=== PATIENT | female | born 1970 | race Caucasian/White ===

== ENCOUNTER 2016-10-01 13:57 | Emergency (ER) | payer MEDICAID, OTHER ==
[2016-10-01] MEDS ORDERED: BUPIVACAINE 0.5% 30 ML VIAL INF ONE (14:26)
[2016-10-01 14:27] VITALS: BP 115/81; PULSE 64; TEMP 98.2; BMI 26.6
--- NOTE | 2016-10-01 14:45 | EDPRACDOC ---
- General Information Chief Complaint: Wound Stated Complaint: FEMALE PROBLEMS ? ABSCESS Time Seen by Provider: 10/01/16 14:27 Information Source: Patient, Family Mode of Arrival:: Car Home Medications: Home Medications Hydrocodone Bit/Acetaminophen [Hydrocodon-Acetaminophen 5-325] 1 tab PO Q6H PRN #15 tab 10/01/16 Sulfamethoxazole/Trimethoprim [Bactrim Ds Tablet] 1 tab PO BID #20 tab 10/01/16 Allergies/Adverse Reactions: Allergies Allergy/AdvReac Type Severity Reaction Status Date / Time No Known Allergies Allergy Verified 10/01/16 14:33 - History of Present Illness Onset: 1 week HPI: PT PRESENTS TO ED WITH ABSCESS TO LEFT BUTTOCK FOR APPROX 1 WEEK. STATES SHE HAS OTHER VERY SMALL AREAS TO GENITALS WELL. Location: Reports: Buttock (LEFT), Pelvis (2 OTHER SMALL AREAS TO GENITALS) Last Tetanus: No Relevent History Of: Reports: None Prior Abscess: Reports: None Pain: Reports: Moderate Quality: Reports: Painful, Red Associated Signs & Symptoms: Reports: None ED Past Medical History - History Reviewed Yes Nurses notes reviewed and agree except as marked Travel Outside of [place] in the Last 3 Months?: No No Past Medical History: Yes Patient has no past medical history - Patient Medical History Psychological History: Denies: Depression - Social Medical History Smoking Status: Heavy tobacco smoker (5 or more cigarettes/day or daily pipe/ cigar) ETOH: None Substance Abuse: None Lives With: Other Lives In: Home EDM Review of Systems - Review of Systems ROS Negative Except as Marked: Yes All systems reviewed and were negative except as marked Constitutional: No Symptoms Reported. negative: Fever, Chills, Weakness, Fatigue, Loss of Appetite Eyes: No Symptoms Reported. negative: Redness, Blurred Vision, Double Vision, Discharge, Pain, Light Sensitive, Photophobia Ears: No Symptoms Reported. negative: Pain, Hearing Loss, Drainage, Ear Pulling Throat: No Symptoms Reported. negative: Pain, Swelling Nose: No Symptoms Reported. negative: Congestion, Bleeding, Discharge, Injection, Swelling, Deformity, Ecchymosis, Tender, Abrasion, Laceration Mouth: No Symptoms Reported. negative: Pain, Drooling Respiratory: No Symptoms Reported. negative: Cough, Brassy Cough, Barky Cough, Shortness of Breath, Wheezing, Hemoptysis Cardiovascular: No Symptoms Reported. negative: Chest Pain, Palpitations, Syncope, Edema, Orthopnea, PND, Skin Mottling, Cyanosis Gastrointestinal: No Symptoms Reported. negative: Pain, Constipation, Nausea, Vomiting, Diarrhea, Melena, Formula Intolerance Genitourinary: Other (SMALL RED BUMPS THAT ARE PAINFUL.). negative: Bleeding, Dysuria, Discharge, Frequency, Hematuria, , Testicular Pain Neurological: No Symptoms Reported. negative: Headache, Dizziness, Seizure, Numbness, Weakness, Speech Difficulty, Gait Difficulty Musculoskeletal: No Symptoms Reported. negative: Neck, Chestwall, Ribs, Back, Shoulder, Arm, Elbow, Forearm, Wrist, Hand, Pelvis, Hip, Femur, Knee, Leg, Ankle , Foot Integumentary: Other (ABSCESS TO LEFT BUTTOCK). negative: Bruising, Itching, Rash, Wound Allergic/Immunologic: No Symptoms Reported. negative: Hives, Itching Hematologic: No Symptoms Reported. negative: Lymphadenopathy, Easy Bruising, Easy Bleeding Endocrine: No Symptoms Reported. negative: Weight Gain, Weight Loss Psychiatric: No Symptoms Reported. negative: Anxiety, Depression, Hallucinations, Insomnia, Suicidal - Physical Exam Constitutional: Alert (Awake), No apparent distress Oriented to: Time, Person, Place Last recorded Vital Signs: Last Vital Signs Temp 98.2 F 10/01/16 14:26 Pulse 64 10/01/16 14:26 Resp 18 10/01/16 14:26 BP 115/81 10/01/16 14:26 Pulse Ox 98 10/01/16 14:26 Oxygen Pulse Oxygen Saturation 98 O2 Device Oxygen Flow Rate Fraction of Inspired Oxygen ( FIO2) - HEENT Head: Normal ( normocephalic) Eye Exam: Normal (PERRL, EOMI, Sclera white) Oropharynx: Normal (Pharynx:Moist without exudate,Gums-no swelling) Tympanic Membrane: Normal ENT EAC: Normal TMJ: Normal Nose: No Symptoms Reported (septum midline) Neck: Normal (FROM, trachea at midline) - Respiratory/Cardiovascular Respiratory: Normal - CTA (BBS clear to auscultation without adventitious sounds ) Cardiovascular: Normal (RRR without murmur, gallop or rub) - GI Auscultation: Normal (NABS) Palpation: Normal (Soft,No rebound or guarding, non distended) Tenderness: Non tender Irizarry's Sign: Negative - Bladder: Normal External: Other (2 AREAS OF WHAT APPEARS TO BE INFECTED HAIR FOLLICLES. NO DISCERNIBLE ABSCESS IN THIS AREA TO I&D) - Musculoskeletal Back: Normal (Non-Tender) Extremities: Normal (Normal tone, Pulses 2+ No cyanosis or edema, FROM) - Integumentary Skin: Normal, Warm, Dry, Other (ABSCESS TO LEFT BUTTOCK.) Lymphatics: Normal (no adenopathy) - Neurologic Memory Impaired: Normal Motor Function: Normal (Normal tone, Pulses 2+ No cyanosis or edema, FROM) Cranial Nerve: Normal (CN II-X11 intact sensation, strength 5/5) Cerebellar: Normal Mood Description: Normal Perception: Normal ED Abscess/Mass Exam - Integumentary Skin: Normal Mass: Red, Tender, Firm, Local Cellulitis Lymphatics: Normal ED Procedures - Incision and Drainage Informed of risks, benefits and alternatives described.: Yes Informed Consent Signed: Verbal Indication: Painful Mass Anesthetic: Bupivacaine Prep: Betadine Blade Size: 11 Incised Site drained: Reports: Blood, Pus Incised site was: Not irrigated, Not Packed with Iodoform - Differential Diagnosis Abscess, Other (FURUNCLE TO GENITAL REGION) Decision Time to Discharge: 14:48 - Departure Disposition: Home Condition: Stable Final Diagnosis: Abscess, Furunculosis Instructions: Abscess (ED), Furunculosis and Carbunculosis (ED) Education/Counseling Given To: Patient Education/Counseling Given Regarding: Diagnosis, Treatment, Prognosis, Follow Up Referrals: None,No Provider [Primary Care Provider] - One Week Prescriptions: Hydrocodone Bit/Acetaminophen [Hydrocodon-Acetaminophen 5-325] 1 tab PO Q6H PRN #15 tab PRN Reason: Pain Sulfamethoxazole/Trimethoprim [Bactrim Ds Tablet] 1 tab PO BID #20 tab Additional Instructions: RETURN IN 2 DAYS FOR WOUND CHECK OR SOONER FOR WORSE OR DIFFERENT SYMPTOMS.
== END 2016-10-01 15:05 | disposition home or self-care (01) ==
LOC: EDMC 13:57
DX: L02.31 Cutaneous abscess of buttock (principal); L02.92 Furuncle, unspecified
CPT/HCPCS: 10060; 87070; 87075; 87077; 87186; 99282; J3490

== ENCOUNTER 2016-10-03 13:04 | Emergency (ER) | payer OTHER ==
[2016-10-03 13:14] VITALS: BP 115/90; PULSE 76; TEMP 98.1; BMI 26.9
--- NOTE | 2016-10-03 13:31 | EDPRACDOC ---
- General Information Chief Complaint: Wound Stated Complaint: WOUND RECHECK Time Seen by Provider: 10/03/16 13:27 Information Source: Patient Mode Of Arrival: Car Home Medications: Home Medications Sulfamethoxazole/Trimethoprim [Bactrim Ds Tablet] 1 tab PO BID #20 tab 10/01/16 Hydrocodone Bit/Acetaminophen [Hydrocodon-Acetaminophen 5-325] 1 tab PO Q6H PRN #15 tab 10/03/16 Allergies/Adverse Reactions: Allergies Allergy/AdvReac Type Severity Reaction Status Date / Time No Known Allergies Allergy Verified 10/01/16 14:33 - History of Present Illness Onset: 2 days Wound Location: LEFT POSTERIOR THIGH Wound Type: Other (S/P I&D) Wound Discharge: None Previously Treated In: [place] [facility] Current Wound Treatment: Antibiotics, Other (I&D) Associated Signs and Symptoms: Pain. negative: Swelling, Fever, Local Redness, Red Streaking, Numbness, Weakness ED Past Medical History - History Reviewed Yes Nurses notes reviewed and agree except as marked No Past Medical History: Yes Patient has no past medical history - Patient Medical History Psychological History: Denies: Depression - Social Medical History Smoking Status: Heavy tobacco smoker (5 or more cigarettes/day or daily pipe/ cigar) EDM Review of Systems - Review of Systems Constitutional: negative: Chills, Fever Gastrointestinal: negative: Nausea, Vomiting Integumentary: Wound - Physical Exam Constitutional: Alert (Awake), No apparent distress Oriented to: Time, Person, Place Last recorded Vital Signs: Last Vital Signs Temp 98.1 F 10/03/16 13:13 Pulse 76 10/03/16 13:13 Resp 20 10/03/16 13:13 BP 115/90 10/03/16 13:13 Pulse Ox 95 10/03/16 13:13 Oxygen Pulse Oxygen Saturation 95 O2 Device Room Air Oxygen Flow Rate Fraction of Inspired Oxygen ( FIO2) - HEENT Head: Normal ( normocephalic) - Neurologic Memory Impaired: Normal Motor Function: Normal (Normal tone, Pulses 2+ No cyanosis or edema, FROM) Cranial Nerve: Normal (CN II-X11 intact sensation, strength 5/5) Cerebellar: Normal Mood Description: Normal Perception: Normal ED Wound Check Exam - Wound Detail Wound Location: LEFT POSTERIOR THIGH Healing: Well Discharge: None Erythema: Localized to Wound Edges - Differential Diagnosis Abscess, Healing wound Decision Time to Discharge: 13:31 - Departure Disposition: Home Condition: Stable Final Diagnosis: Encounter for wound re-check Instructions: MRSA (Methicillin Resistant Staphylococcus Aureus) (ED) Education/Counseling Given To: Patient Education/Counseling Given Regarding: Diagnosis, Treatment, Prognosis, Follow Up Referrals: Eliot Macdonald MD [Staff Physician] - One Week Prescriptions: Hydrocodone Bit/Acetaminophen [Hydrocodon-Acetaminophen 5-325] 1 tab PO Q6H PRN #15 tab PRN Reason: Pain Additional Instructions: Keep wound clean and dry, apply warm compresses to affected area 20 mins at a time 4 - 5 times daily, return to the ED for any worsening symptoms or concerns.
== END 2016-10-03 13:44 | disposition home or self-care (01) ==
LOC: EDMC 13:04
DX: Z48.817 Encounter for surgical aftercare following surgery on the skin and subcutaneous tissue (principal)
CPT/HCPCS: 99282